=== PATIENT | female | born 1955 | race African-American/Black ===

== ENCOUNTER 2016-06-23 21:27 | Inpatient (IN) | payer OTHER ==
--- NOTE | ~2016-06-23 | DS ---
Unit #: [id number] #: [id number] Patient: DARVIN BEATTY [id number] [address] [place], [place] [address] [id number] I MR#: [id number] NAME: DARVIN BEATTY ROOM: 564 Age: 60 Sex: F Admission Date: 06/23/2016 : 1955 Discharge Date: 06/26/2016 Attending Physician: Rachael Chinchilla M.D. Primary Care Physician: Hardeep Sims M.D. DISCHARGE SUMMARY FINAL DIAGNOSES 1. Acute on chronic respiratory failure. 2. Acute exacerbation of chronic obstructive pulmonary disease. 3. Tobacco abuse. 4. Paroxysmal atrial fibrillation. 5. Mild congestive heart failure. 6. Probable obstructive sleep apnea. 7. Hypertension. 8. Hyperlipidemia. 9. Diabetes mellitus. 10. Morbid obesity. DISCHARGE MEDICATIONS Doxycycline 100 mg p.o. b.i.d. for 5 days, prednisone tapering dose, continue rest of the home medications. CONSULTATION DURING HOSPITALIZATION Dr. Waldemar Valero from Pulmonary Services and Dr. Sosa from Cardiology Services. HOSPITAL COURSE Ms. Darvin Beatty is a 60-year-old female, who was admitted to the hospital with shortness of breath and chest tightness. The patient was admitted to telemetry unit with acute exacerbation of COPD and also acute on chronic diastolic congestive heart failure. There was a question of pneumonia in the past, which has been ruled out. The patient's hypertension was uncontrolled on admission. Norvasc is being added during hospitalization. The patient is doing much better at this time. She was treated with IV Solu-Medrol, antibiotics, and nebulizer treatment. Tobacco cessation counseling has been done. The patient is being advised to follow with primary care provider, and nicotine cessation counseling done. DIAGNOSTIC STUDIES LABORATORY RESULTS: On discharge, sodium 134, potassium 4.2, chloride 96, BUN 32, creatinine 0.8. WBC 3.9, hemoglobin 15.8, hematocrit 50.0, and platelet count is 134. IMAGING STUDIES: Chest x-ray, which was done today shows stable cardiomegaly and elevated right hemidiaphragm. Pulmonary vessels are unchanged. There is no new dense opacity. No appreciable fluid or pneumothorax. Persistent atelectasis is present. Unit #: [id number] #: [id number] Patient: DARVIN BEATTY DISCHARGE INSTRUCTIONS 1. The patient is being discharged home in stable condition. 2. Follow up with primary care provider in 1 week. 3. Follow up with Dr. Sosa on 09/08/2016 at 12:45 p.m. 4. Please note, even Lasix dose has been changed to 40 mg b.i.d., prescription has been written. Dictated by... Tierra Fuller/karine TD: 06/27/2016 01:29 JOB #: [id number] DISCHARGE SUMMARY Page 1 of 1 X Rachael Chinchilla MD X DISCHARGE SUMMARY
--- NOTE | ~2016-06-23 | CO ---
Unit #: [id number] #: [id number] Patient: DARVIN LUNDBERG [id number] [facility]. [address] [place], [place] [address] [id number] I MR#: [id number] NAME: DARVIN LUNDBERG ROOM: 564 Age: 60 Sex: F Admission Date: 06/23/2016 : 1955 Attending Physician: Rachael Chinchilla M.D. Primary Care Physician: Hardeep Sims M.D. CONSULTATION REPORT REASON FOR CONSULT Shortness of breath, CHF. HISTORY OF PRESENT ILLNESS This is a 60-year-old female who is typically followed by Dr. Sosa in the office. She has a past medical history of paroxysmal atrial fibrillation, COPD, chronic respiratory failure, on home O2 as needed, hypertension, diastolic congestive heart failure, diabetes mellitus, rheumatoid arthritis, and continued tobacco abuse. The patient states she had been in her typical state of health until Wednesday evening. She reports her mother recently passed and states that she has not been feeling well for the last several days secondary to the weather change with increasing shortness of breath and dyspnea on exertion. She denied any lower extremity edema. She denied any palpitations or anterior chest pain. She does report she had recently been having a cough with sputum production and states that she thinks she may have been running a fever but is not sure. She states multiple family members have been sick recently. She is also complaining of headache. On arrival to the emergency room, patient was noted to be in mild respiratory distress. She was afebrile in the emergency room. Blood pressure was 156/69, oxygen saturation was 92%, and pulse was 78. She was placed on oxygen at that time. She was also given a dose of IV steroids, started on antibiotic treatment, and also a one-time dose of IV Lasix. The patient had a chest x-ray which showed prominent and indistinct pulmonary vasculature with abnormally increased interstitial densities in the central and perihilar regions. Appearance suggestive of pulmonary vascular congestion and interstitial edema. Initial BNP was noted to be 466. An EKG was performed which shows sinus rhythm at 65 beats per minute and left axis deviation. Point of care troponins have been less than 0.05 x2. Echocardiogram was performed in the hospital which shows LVEF of 50% to 55%, mildly dilated left atrium, moderately dilated right ventricle, no evidence of any pericardial effusion, and no valvular heart disease. The patient reports she had been taking her medications as directed and denies any increase in her fluid intake at home. She had a cardiac catheterization performed in 2006 which did show normal coronary arteries. PAST MEDICAL HISTORY 1. History of diastolic CHF. Echocardiogram performed June 24, 2016, shows LVEF of 50% to 55%, mildly dilated left atrium, moderately dilated right ventricle, and no evidence of pericardial effusion. 2. Cardiac catheterization in 2006 was normal. No report available. Unit #: [id number] #: [id number] Patient: DARVIN LUNDBERG 3. Hypertension. 4. Hyperlipidemia. 5. Paroxysmal atrial fibrillation, not on anticoagulation, currently in normal sinus rhythm. 6. Diabetes mellitus type 2. 7. Obstructive sleep apnea. 8. Rheumatoid arthritis. 9. Chronic respiratory failure. 10. Chronic obstructive pulmonary disease, on home oxygen as needed. 11. Continued tobacco abuse. PAST SURGICAL HISTORY 1. Bilateral knee replacement. 2. Hip surgery. 3. Left elbow surgery. SOCIAL HISTORY The patient reports she smokes approximately one-half to one pack ER day and has been doing so for almost 40 years. Denies any history of illicit drug or alcohol use. FAMILY HISTORY Reports father had a history of heart problems but is unsure as to what. ALLERGIES KEFLEX, MORPHINE, NICOTINE PATCHES. HOME MEDICATIONS 1. Methotrexate 2.5 mg p.o. q.7 days. 2. Humira 40 mg subcutaneous every 14 days. 3. Folic acid 1 mg p.o. daily. 4. Hydrocodone and acetaminophen 10/325 at 1 p.o. q.6 hours p.r.n. 5. Valium 5 mg p.o. daily p.r.n. 6. Hydralazine 100 mg p.o. t.i.d. 7. Calcium 600 plus D 1 tab p.o. b.i.d. 8. Omeprazole 40 mg p.o. daily. 9. Mobic 15 mg p.o. daily. 10. Lasix 20 mg p.o. daily. 11. Multivitamin 1 tab p.o. daily. 12. Metoprolol 25 mg p.o. b.i.d. 13. Symbicort 160/4.5 at 2 puffs inhalation b.i.d. 14. Claritin 10 mg p.o. daily. 15. Ventolin 1 puff inhalation q.4-6 hours p.r.n. 16. [place] spray 45 mL nasal daily. 17. Lisinopril 20 mg p.o. daily. 18. Mucus Relief (guaifenesin) 600 mg p.o. b.i.d. 19. Iron 325 mg p.o. daily. 20. Albuterol sulfate inhalation as needed. REVIEW OF SYSTEMS Positive for headache, fatigue, shortness of breath, and productive cough, otherwise negative except for what was stated above in the History of Present Illness. PHYSICAL EXAMINATION VITAL SIGNS: Temperature 97.7, respiratory rate 18-20, pulse 60s-70s, and blood pressure 145/88-170/85. BMI is 43. GENERAL: This is a pleasant 60-year-old female. She is Unit #: [id number] #: [id number] Patient: DARVIN LUNDBERG resting in bed. Currently, family is at bedside. She has oxygen. She is in no acute distress. HEENT: Pupils are equal and round. Mucous membranes are moist. NECK: Trachea is midline. No JVD, no lymphadenopathy, no thyromegaly. CHEST: Clear anterior. Scattered wheezes are noted. ABDOMEN: Soft, nontender, obese, nondistended. Bowel sounds are present. EXTREMITIES: Pulses are palpable. Trace edema. No clubbing or cyanosis. NEUROLOGIC: She is awake, alert, and oriented. She moves all extremities. She follows commands with ease. DIAGNOSTIC STUDIES LABORATORY: Glucose 155, BUN 25, creatinine 1, sodium 137, potassium 4, chloride 95, and CO2 of 30. Troponins have been negative x2, less than 0.03. BNP was 466. Hemoglobin 13.4, hematocrit 44.1, MCV 76.2, WBC 3.2, and platelet count 132,000. She currently has a sputum culture and Gram stain that are pending. IMAGING: Chest x-ray shows cardiomediastinal shift, stable from right to left, secondary to moderate to marked stable elevation of the right hemidiaphragm. Pulmonary vasculature is abnormally prominent and indistinct with abnormally increased interstitial densities in the central and perihilar regions. Appearance suggestive of pulmonary vascular congestion and interstitial edema. Patchy and band-like densities in the left retrocardiac region probably a combination of airspace edema and atelectasis. No pleural effusion or pneumothorax. No suspicious nodule. CARDIOLOGY: Echocardiogram on June 24 shows LVEF of 50% to 55%, mildly dilated left atrium, moderately dilated right ventricle, no evidence of pericardial effusion, and no valvular heart disease of significance. EKG shows sinus rhythm at 65 beats per minute, possible left atrial enlargement, and left axis deviation. Cannot rule out inferolateral infarct age undetermined. IMPRESSION 1. Acute on chronic chronic obstructive pulmonary disease exacerbation. 2. Acute on chronic diastolic congestive heart failure. 3. History of paroxysmal atrial fibrillation, currently in sinus rhythm, not on anticoagulation. 4. Hypertension. 5. Hyperlipidemia. 6. Obstructive sleep apnea. 7. Chronic obstructive pulmonary disease, on home oxygen. 8. Continued tobacco abuse. PLAN The patient has been started on IV diuretics for her fluid overload. She also will be started on fluid restriction and strict I/Os with daily weights. Will check repeat 2D echocardiogram, trend cardiac enzymes, and follow EKG. The patient was also encouraged to lose weight and quit smoking. Will also check EKG. Pulmonary is also following this patient for her chronic hypoxic respiratory failure and her COPD exacerbation. She is on steroids, as well as antibiotic therapy. Dictated by... Felisa Saldana A.P.R.N. for Clau Sosa M.D. LMW/am Unit #: [id number] #: [id number] Patient: DARVIN LUNDBERG TD: 06/25/2016 19:55 JOB #: [id number] CONSULTATION REPORT Page 1 of 1 X Felisa Saldana APRN X CONSULTATION REPORT
--- NOTE | ~2016-06-23 | CO ---
Unit #: [id number] #: [id number] Patient: DARVIN BEATTY [id number] [address] [place], [place] [address] [id number] I MR#: [id number] NAME: DARVIN BEATTY ROOM: 564 Age: 60 Sex: F Admission Date: 06/23/2016 : 1955 Attending Physician: Rachael Chinchilla M.D. Primary Care Physician: Hardeep Sims M.D. CONSULTATION REPORT HISTORY OF PRESENT ILLNESS Ms. Beatty is a 60-year-old white female, who has seen Dr. Molina in the past. She has a history of COPD and tobacco abuse and chronic respiratory failure, hypoxemic and hypercarbic. She presents with a 1-week history of cough, congestion, shortness of breath. She may have had some chills and fever. She came to the emergency room and has been admitted. Chest x-ray was read by Radiology as possibly having some increased interstitial markings. There was no focal consolidation. Her troponin was less than 0.07. BNP was elevated at 466. Cardiac enzymes were negative. She has been seen by Dr. Sosa and felt to have acute on chronic diastolic congestive heart failure. She has also been started on Azactam and doxycycline. PAST MEDICAL HISTORY Significant for COPD with chronic hypoxemic hypercarbic respiratory failure, diastolic congestive heart failure, ongoing tobacco abuse, diabetes, rheumatoid arthritis, hypertension, probable obstructive sleep apnea, morbid obesity. She has had a CT scan of the chest, which showed scattered areas of fibrotic changes in the lungs. No bronchiectasis. No diffuse infiltrative lung disease or honeycombing. Resolution of ground-glass infiltrate in the right lower lobe from before. PAST SURGICAL HISTORY Bilateral knee replacement, stomach stapling, hip surgery, left elbow surgery. HOME MEDICATIONS Methotrexate, Humira, folic acid, hydrocodone, Valium, hydralazine, calcium, Prilosec, Mobic, Lasix, multivitamins, metoprolol, Symbicort, Claritin, Ventolin, [place] nasal spray, lisinopril, Mucus Relief, acetaminophen, and albuterol. SOCIAL HISTORY Smokes cigarettes pack a day. No alcohol or drug abuse. FAMILY HISTORY Coronary artery disease. ALLERGIES Morphine, Levaquin, nicotine patch. REVIEW OF SYSTEMS Complains of weakness and fatigue. Otherwise, 10-point system negative other than mentioned in HPI. Unit #: [id number] #: [id number] Patient: DARVIN BEATTY PHYSICAL EXAMINATION GENERAL: female, in no distress. VITAL SIGNS: Blood pressure is 133/89, pulse 69, respiratory rate 22, afebrile. HEENT: Normocephalic and atraumatic. Pupils are equal, round, and reactive. Sclerae nonicteric. Nasal passages patent. Posterior pharynx crowded. Mallampati IV. NECK: Supple. Trachea midline. LUNGS: Reveal some mild expiratory wheeze. Crackles in the bases. CARDIAC: Regular rate and rhythm. Could not appreciate murmur, rub, or gallop. ABDOMEN: Nontender. Bowel sounds present. No hepatosplenomegaly. EXTREMITIES: Without clubbing, cyanosis, or edema. DIAGNOSTIC STUDIES LABORATORY RESULTS: Arterial blood gases from 02/2016 on room air. The pH 7.45, pCO2 of 62, PO2 of 40. Chemistries reviewed unremarkable. CO2 is 32. BNP is 466. Lactic acid is 1.5. Coags are normal. White count 3200, hematocrit 44.1, and platelet count 132,000. Legionella and strep pneumoniae urinary antigens are negative. Influenza A and B are negative. IMPRESSION 1. Acute exacerbation of chronic obstructive pulmonary disease. 2. Acute on chronic hypoxemic hypercarbic respiratory failure. 3. Diastolic congestive heart failure. 4. Doubt pneumonia with normal white count and negative procalcitonin. 5. Tobacco abuse. 6. Probable obstructive sleep apnea. 7. Paroxysmal atrial fibrillation, hypertension, hyperlipidemia. PLAN steroids, bronchodilators, oral antibiotics. Discontinue IV antibiotics, diuresis. Outpatient sleep study. Outpatient pulmonary function test if they have not been done. Smoking cessation. Further recommendations pending this. Dictated by... Tierra Sherman/karine TD: 06/26/2016 00:12 JOB #: [id number] CC: Pablito Molina M.D. CONSULTATION REPORT Page 1 of 1 X Kem Valero MD X CONSULTATION REPORT
--- NOTE | ~2016-06-23 | CR72 ---
[facility] A Service of [facility] & [facility] RADIOLOGY TEXT RESULTS PATIENT: DARVIN LUNDBERG LOCATION: [facility] 564-01 : 54 UNIT #: [id number] AGE: [address]: Rachael Chinchilla MD SEX: F ORDER DR: [id number] [facility] [address] [facility]. [place], [place] [address] [id number] I MR#: [id number] Acc #: [id number] NAME: DARVIN LUNDBERG : 1955 SEX: F STUDY DATE/TIME: 06/23/2016 20:57 UNIT: [facility] ROOM: [facility] STUDY DESCRIPTION: CR Chest Single View Portable Attending Physician: Rachael Chinchilla M.D. Ordering Physician: Clif Whalen D.O. Primary Care Physician: Hardeep Sims M.D. MEDICAL IMAGING REPORT This report is preliminary unless electronic signature is present EXAM Portable chest x-ray, 06/23/2016. HISTORY Short of air. 1 week duration. Cough, congestion. FINDINGS AP radiograph of the chest is presented. Comparison 02/17/2016. Prior right shoulder arthroplasty. No acute-appearing bony abnormality. Heart mildly enlarged. Cardiomediastinal shift, stable from right to left, secondary to moderate to marked stable elevation of the right hemidiaphragm. Pulmonary vasculature is abnormally prominent and indistinct with abnormally increased interstitial densities in the central and perihilar regions, extending toward the mid lung zones bilaterally. Appearance suggests pulmonary vascular congestion and interstitial edema. Patchy and band-like densities in the left retrocardiac region probably a combination of airspace edema and atelectasis. No dense airspace disease is seen. No pleural effusion or pneumothorax. No suspicious nodule. Clothing artifacts overlie the image. Dictated by... Bro Peterson M.D. THIS IS AN ELECTRONICALLY VERIFIED REPORT Bro Peterson M.D. at 06/24/2016 2:19 PM RICHARD/juan TD: 06/24/2016 12:34 JOB #: [id number] [facility] A Service of [facility] & [facility] RADIOLOGY TEXT RESULTS PATIENT: DARVIN LUNDBERG LOCATION: [facility] 564-01 : 54 UNIT #: [id number] AGE: [address]: Rachael Chinchilla MD SEX: F ORDER DR: MEDICAL IMAGING REPORT Page 1 of 1 COPY
--- NOTE | ~2016-06-23 | HP ---
Unit #: [id number] #: [id number] Patient: DARVIN LUNDBERG [id number] [address] [place], [place] [address] [id number] I MR#: [id number] NAME: DARVIN LUNDBERG ROOM: 564 Age: 60 Sex: F Admission Date: 06/23/2016 : 1955 Attending Physician: Rachael Chinchilla M.D. Primary Care Physician: Hardeep Sims M.D. HISTORY AND PHYSICAL CHIEF COMPLAINT Shortness of breath, cough, and just not feeling well. HISTORY OF PRESENTING ILLNESS A 60-year-old female with multiple medical problems had a in the family. Her mother last week, and after that she has been feeling very sick. She has been feeling shortness of breath worse than normal. She has been having cough with sputum production. She thought that she was developing pneumonia. She had chills, and she had trouble breathing. She was using her albuterol, and she was taking her steroids but was not getting better at all. She came to the ER and is being admitted to the hospital for acute COPD exacerbation, acute on chronic hypoxic respiratory failure, and rule out pneumonia. Patient did not have any fever, chills, or rigors. She does not complain of nausea or vomiting. She does not complain of abdominal pain. She does not complain of leg pain and no complaint of dizziness or syncopal episode. PAST MEDICAL HISTORY 1. Chronic respiratory failure on home O2. 2. Chronic obstructive pulmonary disease. 3. Diastolic congestive heart failure. 4. Ongoing tobacco abuse. 5. Diabetes mellitus. 6. Rheumatoid arthritis. 7. Hypertension. 8. Probable obstructive sleep apnea. 9. Morbid obesity. PAST SURGICAL HISTORY 1. Bilateral knee replacement. 2. Stomach stapling. 3. Hip surgery. 4. Left elbow surgery. HOME MEDICATIONS 1. Methotrexate 2.5 mg every 7 days. 2. Humira 40 mg subcutaneous every 14 days. 3. Folic acid 1 mg daily. 4. Hydrocodone 10/325 at 1 tablet q.6 p.r.n. 5. Valium 5 mg daily. 6. Hydralazine 100 mg 3 times daily. 7. Calcium with vitamin D 1 tablet twice daily. 8. Omeprazole 40 mg daily. 9. Mobic 15 mg daily. Unit #: [id number] #: [id number] Patient: DARVIN LUNDBERG 10. Lasix 40 mg p.o. b.i.d. 11. Multivitamin daily. 12. Metoprolol 25 mg twice daily. 13. Symbicort 160/4.5 at 2 puffs inhaler twice daily. 14. Claritin 10 mg daily. 15. Ventolin inhaler q.6 p.r.n. 16. [place] nasal spray daily. 17. Lisinopril 20 mg daily. 18. Mucus Relief 600 mg twice daily. 19. Acetaminophen 500 mg q.6 p.r.n. and 325 mg daily. 20. Albuterol sulfate 4 mg p.o. b.i.d. SOCIAL HISTORY Patient is a smoker and continues to smoke. She has been smoking since the age of 13. There is no history of drug abuse or alcohol abuse. FAMILY HISTORY Patient's father had coronary artery disease. Details are not known. ALLERGIES MORPHINE, LEVOFLOXACIN, NICOTINE PATCHES CAUSE RASH, AND KEFLEX. REVIEW OF SYSTEMS She just complains of weakness and fatigue. No complaint of appetite loss. She does complain of some headache. No history of difficulty swallowing or dizziness. She does not have any history of chest pain or palpitations. No paroxysmal nocturnal dyspnea. She does complain of shortness of breath and productive cough. No complaint of abdominal pain, nausea, or vomiting, and no complaint of lower extremity edema. No complaint of syncopal episode and no major skin issues. PHYSICAL EXAMINATION GENERAL: Patient is sitting upright and does not seem to be in any respiratory distress. She does have oxygen on. She is being evaluated in room 564. VITAL SIGNS: Blood pressure is 154/74, respiratory rate 20, pulse 67, temperature 97.8, and oxygen saturation is 95%. Patient's BMI is 43. HEENT: Head is normocephalic. Eye movements are normal. NECK: Supple. CHEST: Decreased air entry bilaterally. Wheezing is heard, decreased at the bases. CARDIOVASCULAR: S1 and S2 positive. Regular rhythm. ABDOMEN: Obese and soft. No tenderness, no rigidity. EXTREMITIES: Pulses are palpable. Negative edema. CENTRAL NERVOUS SYSTEM: Awake, alert, and oriented x3. No focal neurological deficit. DIAGNOSTIC STUDIES LABORATORY: Influenza A and B are negative. Sodium 136, potassium 4.1, chloride 94, BUN 17, and creatinine 1. Liver enzymes are stable. Lactic acid 1.5. CBC shows WBC of 3.2, hemoglobin 13.4, hematocrit 44.1, and platelet count of 132,000. BNP 466. TSH is 0.16. Troponin less than 0.03. IMAGING: Chest x-ray is pending. ASSESSMENT Patient is being admitted to telemetry unit with: Unit #: [id number] #: [id number] Patient: DARVIN LUNDBERG 1. Acute on chronic hypoxic respiratory failure. 2. Acute chronic obstructive pulmonary disease exacerbation. 3. Doubt pneumonia. 4. Acute on chronic diastolic congestive heart failure. 5. Hypertension not very well controlled. 6. Hyperlipidemia. 7. Diabetes mellitus type 2. 8. Probable obstructive sleep apnea. 9. Tobacco abuse. PLAN 1. Admit to telemetry unit. Dr. Martínez and Dr. Sosa have been consulted. Patient is on IV Lasix at this time. Echocardiogram will be ordered. Troponin is normal range. 2. Dr. Molina will be consulted. Patient is being started on IV Solu-Medrol, mini-neb treatment, and IV antibiotics. Sputum for Gram stain and culture has been done. Home medications have been reviewed and adjusted. 3. Hypertension. Patient's home medications have been continued. Will adjust the medication if blood pressure does not get controlled. 4. Diabetes mellitus type 2. Continue Accu-Cheks a.c. and at bedtime and insulin sliding scale, low-dose protocol. 5. Tobacco abuse. Extensive tobacco cessation counseling done. Patient's future [id number] is in the room, and she does verbalize understanding. 6. Please refer to progress note for further orders. 1. Dictated by Tierra Fuller TD: 06/24/2016 14:16 JOB #: [id number] HISTORY AND PHYSICAL Page 1 of 1 X Rachael Chinchilla MD X HISTORY AND PHYSICAL
--- NOTE | ~2016-06-23 | BMI ---
[facility] Nutrition Therapy DATE: 06/25/16 Patient: DARVIN LUNDBERG Physician: RICK Address: [address] [place] [address] Room/Bed: [address] [place] [address], Zip: [place] [address] Admit Date: 06/23/16 Date of : 53 Height: 5 3 Weight: 250 113.4 HIGH BMI NOTE: DX: 60 Y.O. FEMALE ADMITTED FOR RESP FAILURE ANTHROPOMETRICS: 5'3", WT: 250# (114 KG), BMI: 44.3 DIET: CC INTERVENTION: 1. CC DIET RECOMMENDATIONS: 1. RECOMMEND TO ADD HH TO CURRENT DIET ORDER ABOVE TO PROMOTE GRADUAL WEIGHT LOSS TOWARDS HEALTHY BMI (19.0-25.0) OR +/-10%IBW RD WILL F/U PER PROTOCOL Respectfully, MAYELA AWAD MS, RD, LD Food and Nutritional Services [facility] cc: client file
--- NOTE | ~2016-06-23 | CR63 ---
[facility] A Service of [facility] & [facility] RADIOLOGY TEXT RESULTS PATIENT: DARVIN LUNDBERG LOCATION: [facility] [id number] [phone] 53 UNIT #: [id number] AGE: [address]: Rachael Chinchilla MD SEX: F ORDER DR: [id number] [facility] [address] [place], [place] [address] [id number] MR#: [id number] #: [id number] NAME: DARVIN LUNDBERG : 1955 SEX: F STUDY DATE/TIME: 06/26/2016 7:24 UNIT: [facility] ROOM: [facility] STUDY DESCRIPTION: CR Chest 2 View Attending Physician: Rachael Chinchilla M.D. Ordering Physician: Kem Valero M.D. Primary Care Physician: Hardeep Sims M.D. MEDICAL IMAGING REPORT This report is preliminary unless electronic signature is present EXAM 2-view chest INDICATIONS Cough and shortness of air for the past week. PROCEDURE Frontal and lateral views of the chest. COMPARISON 06/23/2016. FINDINGS Stable cardiomegaly and elevated right hemidiaphragm. Pulmonary vessels are unchanged. There is no new dense opacity. No appreciable fluid or pneumothorax. Persistent bibasilar scarring or atelectasis. IMPRESSION No significant change from 06/23/2016. Dictated by... Chris Moreno M.D. THIS IS AN ELECTRONICALLY VERIFIED REPORT Chris Moreno M.D. at 06/26/2016 5:05 PM EED/raisa TD: 06/26/2016 09:27 JOB #: [id number] MEDICAL IMAGING REPORT Page 1 of 1 COPY
--- NOTE | ~2016-06-23 | EKG ---
PATIENT: DARVIN LUNDBERG UNIT #: [id number] Ventricular Rate: 72 BPM Atrial Rate: 72 BPM P-R Interval: 162 ms QRS Duration: 78 ms Q-T Interval: 412 ms QTC Calculation(Bezet): 451 ms P [place]: 5 degrees Calculated R [place]: -109 degrees Calculated T C[place]: -7 degrees Diagnosis Line: Normal sinus rhythm Diagnosis Line: Right superior axis deviation Diagnosis Line: Anterior infarct (cited on or before 25-MAY-2015) Diagnosis Line: Abnormal ECG Diagnosis Line: When compared with ECG of 17-FEB-2016 01:46, Diagnosis Line: Questionable change in QRS axis Diagnosis Line: Non-specific change in ST segment in Lateral leads Diagnosis Line: Confirmed by ABDIAZIZ IZQUIERDO MD ([id number]) on 06/25/2016 Diagnosis Line: 9:17:21 AM INTERPRETING MD: FELECIA LAMB
--- NOTE | ~2016-06-23 | EKG ---
PATIENT: DARVIN LUNDBERG UNIT #: [id number] Ventricular Rate: 67 BPM Atrial Rate: 67 BPM P-R Interval: 184 ms QRS Duration: 78 ms Q-T Interval: 426 ms QTC Calculation(Bezet): 450 ms P [place]: 45 degrees Calculated R [place]: -14 degrees Calculated T [place]: 28 degrees Diagnosis Line: Normal sinus rhythm Diagnosis Line: Inferior infarct , age undetermined Diagnosis Line: Abnormal ECG Diagnosis Line: When compared with ECG of 24-JUN-2016 09:16, Diagnosis Line: (unconfirmed) Diagnosis Line: Fusion complexes are no longer Present Diagnosis Line: Criteria for Anterolateral infarct are no longer Diagnosis Line: Present Diagnosis Line: Inferior infarct is now Present Diagnosis Line: Confirmed by SRAVANTHI CONRAD MD ([id number]) on 06/26/2016 Diagnosis Line: 7:45:45 AM INTERPRETING MD: HOUSTON LAMB
--- NOTE | ~2016-06-23 | EKG ---
PATIENT: DARVIN LUNDBERG UNIT #: [id number] Ventricular Rate: 65 BPM Atrial Rate: 65 BPM P-R Interval: 174 ms QRS Duration: 76 ms Q-T Interval: 424 ms QTC Calculation(Bezet): 440 ms P [place]: 42 degrees Calculated R [place]: -40 degrees Calculated T [place]: 35 degrees Diagnosis Line: Sinus rhythm with Fusion complexes Diagnosis Line: Possible Left atrial enlargement Diagnosis Line: Left axis deviation Diagnosis Line: Anterolateral infarct (cited on or before Diagnosis Line: 25-MAY-2015) Diagnosis Line: Abnormal ECG Diagnosis Line: When compared with ECG of 23-JUN-2016 21:02, Diagnosis Line: (unconfirmed) Diagnosis Line: Non-specific change in ST segment in Lateral leads Diagnosis Line: Confirmed by SRAVANTHI CONRAD MD ([id number]) on 06/26/2016 Diagnosis Line: 7:38:29 AM INTERPRETING MD: HOUSTON LAMB
[~2016-06-23 21:27] MED LIST: ACETAMINOPHEN PO; ALBUTEROL MININEB NEB; ALBUTEROL PO; ALBUTEROL17 GM INH; ASPIRINEC; CALCIUM + D 6001 TA1 PO; CALCIUM 500 + D1 TAB PO; CALCIUM 600 + D1 TAB PO; CALCIUM W/VITAM1 TA5 PO; CAPOZIDE PO; CELEXA20 MG PO; CITALOPRAM HBR40 MG PO; CLARITIN10 M1 PO; CLARITIN10 M2 PO; CLARITIN10 MG PO; COMBIVENT INH14.7 G1 IH; COMBIVENT INH14.7 GM INH; COMBIVENT U/D3 M1 INH; DIAZEPAM PO; FOLIC ACID PO; FOLIC ACID1 MG PO; GAS RELIEF125 MG PO; GUAIFENESIN600 MG PO; GUAIFENEX DM; HUMIRA; HUMIRA20 MG/0.4; HUMIRA40 MG/0.1 SQ; HYDRALAZINE HC100 MG PO; HYDRALAZINE HCL25 MG PO; HYDROCODON-ACE1 EAC5 PO; IRON TABLETS1 TAB PO; LANTUS SOLOSTAR3 ML SUBQ; LASIX20 MG PO; LEVAQUIN PO; LEVAQUIN250 MG PO; LEVAQUIN750 MG PO; LIDODERM30 EA; LISINOPRIL PO; LISINOPRIL-HCTZ1 T14 PO; LISINOPRIL10 MG PO; LORTAB 7.5-5001 TAB PO; MAXILIFE RICE 51 CAP; MEDROL PO; METHOTREXATE2.5 MG PO; METOPROLOL TAR25 MG PO; MOBIC15 MG PO; MUCINEX DM ER1 EACH PO; MUCINEX DM1 TAB.SR . PO; MUCINEX100 MG/BOX PO; MULTI VITAMIN1 EACH PO; MULTI-VITAMIN1 TAB PO; NIFEREX-150 CAP1 CAP PO; NIFEREX-150150 MG PO; OCEAN45 ML; OMEPRAZOLE40 M1 PO; PENICILLIN V P500 MG PO; PLAQUENIL200 MG; PLAQUENIL200 MG PO; PREDNISONE PO; PREDNISONE10 MG/DOSE PO; PRILOSEC PO; PRILOSEC20 M1 PO; PRILOSEC20 MG PO; PRILOSEC40 MG PO; PROAIR HFA8.5 GM IH; PROVENTIL2 MG PO; PROVENTIL4 MG PO; QVAR7.3 GM INH; ROBITUSSIN-DM120 ML PO; SOMA; SYMBICORT INH; TYLOX 5/500 CAP1 CAP PO; VALIUM2 MG PO; VIT E PO; VITACON FORTE PO; VITAMIN B COMPLEX PO; ZESTORETIC 10-1 EACH PO; ZESTORETIC 20/11 TAB PO; ZITHROMAX
[2016-06-23 21:47] LABS: POC - CKMB 1.1 ng/mL (0.0-7.9); POC - TROPONIN <0.05 ng/mL (<=0.05)
[2016-06-23] MEDS ORDERED: MAPAP500 M1 PO (22:16)
[2016-06-23] MEDS ORDERED: MUCUS RELIEF600 M1 PO (22:16)
[2016-06-23] MEDS ORDERED: LISINOPRIL20 MG PO (22:16)
[2016-06-23 22:17] LABS: INFLUENZA A NEG (NEG); INFLUENZA B NEG (NEG)
[2016-06-23] MEDS ORDERED: IRON1 TAB PO (22:17)
[2016-06-23] MEDS ORDERED: ALBUTEROL SULFAT4 M1 PO (22:17)
[2016-06-23 22:20] LABS: ALBUMIN SERUM 3.4 g/dL (3.5-5.0); ALKALINE PHOSPHATASE 71 U/L (32-92); ALT (SGPT) 17 U/L (10-40); AST (SGOT) 22 U/L (10-42); BILIRUBIN, DIRECT 0.1 mg/dL (0.0-0.2); BILIRUBIN,INDIRECT 0.5 mg/dL (0.0-0.9); BILIRUBIN,TOTAL 0.6 mg/dL (0.2-2.0); BLOOD UREA NITROGEN 17 mg/dL (9-23); CALCIUM SERUM 8.5 mg/dL (8.4-10.2); CARBON DIOXIDE 35 mmol/L (22-31); CHLORIDE 94 mmol/L (100-111); GLOM FILT RATE Estimated ABOVE60 mL/min (>60); GLUCOSE FASTING 109 mg/dL (70-110); POTASSIUM 4.1 mmol/L (3.5-5.1); PROTEIN TOTAL SERUM 7.3 g/dL (6.0-8.3); SODIUM 136 mmol/L (135-145)
[2016-06-23 22:27] LABS: PARTIAL THROMBOPLASTIN TIME 30.3 SECONDS (23.5-31.3)
[2016-06-23 22:33] LABS: BASOPHIL% 0.9 % (0-2.5); EOSINOPHIL# 0.1 X10e3 (0-0.7); HEMATOCRIT 44.1 % (35.0-45.0); HEMOGLOBIN 13.4 gm/dL (12.0-16.0); LYMPHOCYTE# 1.3 X10e3 (1.0-3.5); MEAN CELL VOLUME 76.2 FL (83-96); MEAN CORPUSCULAR HEMOGLOBIN 23.2 PG (28-34); MEAN CORPUSCULAR HGB CONC 30.4 g/dL (30-36); MEAN PLATELET VOLUME 7.5 FL (6.5-11.5); MONOCYTE# 0.6 X10e3 (0-1.0); MONOCYTE% 18.4 % (3.0-12.0); NEUTROPHIL# 1.2 X10e3 (1.5-7.1); NEUTROPHIL% 36.7 % (40-75); PLATELET COUNT 132 X10e3 (140-420); RED BLOOD COUNT 5.79 X10e (3.90-5.30); RED CELL DISTRIBUTION WIDTH 15.5 % (11.0-15.5); WHITE BLOOD COUNT 3.2 X10e3 (4.0-10.5)
[2016-06-23 23:03] LABS: DIFF IND NO
[2016-06-24 00:21] LABS: POC - CKMB 2.6 ng/mL (0.0-7.9); POC - TROPONIN <0.05 ng/mL (<=0.05)
[2016-06-24 07:41] LABS: PROCALCITONIN 0.07 NG/ML
[2016-06-24 07:55] LABS: BLOOD UREA NITROGEN 16 mg/dL (9-23); BUN/CREATININE RATIO 26.66; CALCIUM SERUM 8.5 mg/dL (8.4-10.2); CARBON DIOXIDE 32 mmol/L (22-31); CHLORIDE 96 mmol/L (100-111); CREATININE SERUM 0.6 mg/dL (0.6-1.4); GLOM FILT RATE Estimated ABOVE60 mL/min (>60); GLUCOSE FASTING 188 mg/dL (70-110); POTASSIUM 4.5 mmol/L (3.5-5.1); SODIUM 134 mmol/L (135-145)
[2016-06-24 10:37] LABS: LEGIONELLA AG URINE NEG (NEG)
[2016-06-24 11:43] LABS: FREE T3 2.9 pg/mL (2.5-3.9)
[2016-06-24 11:44] LABS: FREE THYROXIN (T4) 1.5 ng/dL (0.58-1.64)
[2016-06-25 12:31] LABS: CALCIUM SERUM 8.8 mg/dL (8.4-10.2); GLOM FILT RATE Estimated 70.5 mL/min (>60)
[2016-06-26 06:16] LABS: HEMOGLOBIN 15.8 gm/dL (12.0-16.0); MEAN CELL VOLUME 76.1 FL (83-96); MEAN CORPUSCULAR HEMOGLOBIN 22.7 PG (28-34); MEAN CORPUSCULAR HGB CONC 29.8 g/dL (30-36); MEAN PLATELET VOLUME 8.2 FL (6.5-11.5); RED BLOOD COUNT 6.96 X10e (3.90-5.30); RED CELL DISTRIBUTION WIDTH 15.4 % (11.0-15.5); WHITE BLOOD COUNT 3.9 X10e3 (4.0-10.5)
[2016-06-26 08:02] LABS: CALCIUM SERUM 8.4 mg/dL (8.4-10.2); CREATININE SERUM 0.8 mg/dL (0.6-1.4); GLOM FILT RATE Estimated 92.3 mL/min (>60); POTASSIUM 4.2 mmol/L (3.5-5.1)
[2016-06-26] MEDS ORDERED: VALIUM2 MG PO (12:22)
[2016-06-26] MEDS ORDERED: LASIX20 MG PO (12:23)
[2016-06-26] MEDS ORDERED: NORVASC2.5 MG PO (12:24)
[2016-06-26] MEDS ORDERED: DOXYCYCLINE HY100 M3 PO (12:24)
[2016-06-26] MEDS ORDERED: PREDNISONE PO (12:36)
== END 2016-06-26 15:21 | disposition home or self-care (01) | DRG 291 ==
LOC: CED 21:27 → CEDOF 23:30 → C5C 06-24 01:56
PROVIDERS: Emergency Medicine; Hospitalist; Physician Assistant Medical
PROC: B246YZZ Ultrasonography of Right and Left Heart using Other Contrast (ICD-10-PCS; principal; 2016-06-24)
DX: I11.0 Hypertensive heart disease with heart failure (principal); J96.21 Acute and chronic respiratory failure with hypoxia; J44.1 Chronic obstructive pulmonary disease with (acute) exacerbation; I50.33 Acute on chronic diastolic (congestive) heart failure; E78.5 Hyperlipidemia, unspecified; I48.0 Paroxysmal atrial fibrillation; E11.9 Type 2 diabetes mellitus without complications; M06.9 Rheumatoid arthritis, unspecified; F17.210 Nicotine dependence, cigarettes, uncomplicated; Z96.653 Presence of artificial knee joint, bilateral; Z88.1 Allergy status to other antibiotic agents; Z88.8 Allergy status to other drugs, medicaments and biological substances; G47.33 Obstructive sleep apnea (adult) (pediatric); E66.01 Morbid (severe) obesity due to excess calories
CPT/HCPCS: 36415; 71010; 71020; 80048; 80076; 82308; 82553; 82947; 83605; 83880; 84439; 84443; 84481; 84484; 85025; 85027; 85610; 85730; 87070; 87205; 87449; 87804; 87899; 93005; 93306; 94640; 94664; 94760; 96374; 96375; 99285; J1650; J1815; J1940; J2920; J2930